=== PATIENT | male | born 1955 | race Caucasian/White ===

== ENCOUNTER 2023-05-08 07:25 | Emergency (ER) | payer OTHER, SELFPAY ==
[2023-05-08 07:40] VITALS: BP 195/104
--- NOTE | 2023-05-08 08:03 | ED.GENMED ---
History of Present Illness
General
Chief Complaint: Flank Pain
Time Seen by Provider: 05/08/23 07:56
Travel History
Have you had any contact with someone who has COVID-19?: No
Do you have any symptoms of coronavirus? Fever > 100 degrees, chills, cough, shortness of breath, sore throat, loss of taste or smell, muscle aches, or headache?: No
History of Present Illness
History of Present Illness:
HPI: At 5 AM, the patient had abrupt onset right sided abdominal and right flank pain. He has never had kidney stone before. This is associated with waves of nausea/dry heaves but he never vomited. While he had the nausea he had some 'tingling in
my head'. He denies any other symptoms.
EXAM:
GENERAL: Well appearing but in mild to moderate distress
HEENT: Moist oral mucosa
CARDIOVASCULAR: No murmurs, normal heart rate and rhythm, No chest wall tenderness
PULMONARY: No respiratory distress, breath sounds are clear and equal
ABDOMEN: Soft with no peritoneal signs, no tenderness minimal right CVA tenderness
NEUROLOGIC: Excellent strength all extremities, no coordination deficits
PSYCHIATRIC: Appropriate mental status, normal insight and judgement
EXTREMITIES: Nontender, no edema, moves all extremities equally
SKIN: No rash, no lesions
TIME OF INITIAL ENCOUNTER: 8:15 AM
NUMBER AND COMPLEXITY OF PROBLEMS ADDRESSED AT THE ENCOUNTER
� Chronic conditions affecting care: CAD, hyperlipidemia, CAD
� Acute Exacerbation and/or Progression of Chronic Illness: This is an acute problem
� Differential Diagnosis includes: Ureteral stone/colic, UTI/pyelonephritis, musculoskeletal abdominal/back pain
AMOUNT AND/OR COMPLEXITY OF DATA TO BE REVIEWED AND ANALYZED
� I performed an independent evaluation of and my interpretation is:
EKG:
CT: I personally viewed CT imaging of the abdomen pelvis, small stone noted at the right UVJ
X-rays:
Laboratory Studies: White count and hemoglobin are normal, renal function is normal, blood noted on urinalysis with no sign of infection
Other:
� Review of other/old records: CBCs over the last several years have been unremarkable, renal function over the last several years have been normal
� Clinical information was obtained by an independent historian: Spoke to
� Prescriptions/Medications Considered but not given:
� Further testing considered but not performed:
RISK OF COMPLICATIONS AND/OR MORBIDITY OR MORTALITY OF PATIENT MANAGEMENT
� Social determinants of health affecting care: This is an acute problem
� Discussion with other providers:
� Escalation of care including admission/observation vs risk of discharge considered: The patient has abrupt onset right-sided pain. The patient was given Toradol initially as well as Zofran and fluids. CT shows small ureteral
stone at the UVJ. On reassessment at 10:00 AM, the patient feels markedly improved after Toradol was given.
Past History
Past History
ED Past Medical History: None, Arrthythmia (s/p ablation), Hypercholesterolemia and Other (Rib Fractures, PNA)
ED Past Surgical History: Cardiac (Ablation, Stent X 1)
Social History
Tobacco: Non-smoker
Alcohol: Daily (Wine One glasses)
Personal:
Living: with family
Employment: Employed
Family History
Family History: CAD (father)
Phy Exam
Physical Exam
Physical Exam:
See HPI
Course
Orders/Labs/Results
Orders:
Orders
05/08/23 08:09
Ketorolac [Toradol] 15 mg .ROUTE .STK-MED ONE
05/08/23 08:14
Ketorolac [Toradol] 15 mg IV NOW STA
05/08/23 08:16
CT Abd/pel Without Iv Or Oral Urgent
Comment:
Reason For Exam: abrupt onset R flank pain
0.9% Sodium Chloride 1000 ml [Nss] 1,000 ml IV BOLUS
Ondansetron Injectable [Zofran] 4 mg IV NOW STA
05/08/23 08:18
CMP [Comprehensive Metabolic Panel] Urgent
Complete Blood Count/With Diff Urgent
Urinalysis Reflex To Culture Urgent
Date Specimen was Collected: 05/08/23
Time Specimen was Collected: 08:15
Urine Microscopic Reflex Cult Urgent
Abnormal Lab Results
05/08/23
08:18
MCV 94.7 H fL
(80.0-94.0)
MCH 32.5 H pg
(27.0-31.0)
Plt Count 77 L 10^3/uL
(130-400)
MPV 11.7 H fL
(7.4-10.4)
Absolute Monos (auto) 0.8 H 10^3/uL
(0.1-0.6)
Monocytes % 10.3 H %
(1.7-9.3)
BUN 21 H mg/dl
(9-20)
Glucose 119 H mg/dl
(70-99)
Ur Occult Blood Reflex 1+ A
(Negative)
Leukocyte Esterase Rfl Trace A
(Negative)
Urine RBC 3-6 A /HPF
(0-2)
Urine Bacteria (Reflex) Few A
(Negative)
05/08/23 08:18
05/08/23 08:18
Vital Signs
Initial and Last Documented VS:
Initial Vital Signs
Temp Pulse Resp BP Pulse Ox
97.7 F 66 20 195/104 99
05/08/23 07:40 05/08/23 07:40 05/08/23 07:40 05/08/23 07:40 05/08/23 07:40
Last Documented Vital Signs
Temp Pulse Resp BP Pulse Ox
97.7 F 63 16 144/85 99
05/08/23 07:40 05/08/23 09:56 05/08/23 09:56 05/08/23 09:56 05/08/23 07:40
*Critical Care Note
Total Time (30-74mins, 75-104mins- exclusive of procedures): Not Applicable
ED Attending Note
-
Portions of this chart may have been created with voice recognition software.� Occasional wrong word or��sound alike� substitutions may have occurred due to the inherent limitations of voice recognition software.
Discharge Plan
Departure
Prescriptions:
No Action
atorvastatin 40 MG tablet
40 mg PO QPM
aspirin 81 MG tablet,delayed release (DR/EC)
81 mg PO DAILY 0RF
Zinc
1 tab PO DAILY
acetaminophen [Acetaminophen Extra Strength] 500 mg tablet
1,000 mg PO Q6H PRN (Reason: Pain) Qty: 14 0RF
multivitamin Tablet
1 tab PO DAILY
trazodone 50 mg Tablet
25 mg PO PRN PRN (Reason: anxiety/stress)
prednisone 5 mg Tablet
5 mg PO DAILY
Referrals:
Jorgito Rasheed DO [Family Provider] -
Interventions
Interventions:
*Risk Screen - Suicide Last Done: 05/08/23 08:07
*Neglect/Abuse Screening Last Done: 05/08/23 08:07
ED- Fall Risk Assessment Last Done: 05/08/23 08:15
*ED COVID-19 Vaccine History Last Done: 05/08/23 07:40
PR-Fcvvtp-Gzrvnshzqi Assessment Last Done: 05/08/23 08:07
ED-Male Genitourinary Assessment Last Done: 05/08/23 08:07
[2023-05-08] MEDS: TORADOL 15 MG IV (08:14)
[2023-05-08] MEDS: NSS 1000 IV (08:22)
[2023-05-08] MEDS: ZOFRAN 4 MG IV (08:22)
[2023-05-08 08:35] LABS: Urine Albumin Negative (Neg - Trace); Urine Bilirubin Negative (Negative); Urine Character Clear (Clear); Urine Color Yellow; Urine Glucose Negative (Negative); Urine Ketone Negative (Negative); Urine Leukocyte Trace (Negative); Urine Nitrite Negative (Negative); Urine Occult Blood 1+ (Negative); Urine Specific Gravity 1.025 (<1.030); Urine Urobilinogen Negative (Neg - 1+)
[2023-05-08 08:37] VITALS: BMI 28.5
[2023-05-08 08:43] LABS: % Basophils 0.7 % (0-2); % Eosinophils 2.1 % (0-6); % Immature Granulocytes 0.4 % (0-0.5); % Lymphocytes 21.9 % (20.5-51.1); % Monocytes 10.3 % (1.7-9.3); % Neutrophils 64.6 % (42.2-75.2); Absolute Basophils 0.1 10^3/uL (0-0.2); Absolute Eosinophils 0.2 10^3/uL (0-0.7); Absolute Lymphocytes 1.7 10^3/uL (1.2-3.4); Absolute Monocytes 0.8 10^3/uL (0.1-0.6); Absolute Neutrophils 4.9 10^3/uL (1.4-6.5); Hematocrit 44.6 % (39.0-52.0); Hemoglobin 15.3 g/dL (13.0-18.0); Mean Corp Hgb Conc. 34.3 g/dL (33.0-37.0); Mean Corpuscular Hgb 32.5 pg (27.0-31.0); Mean Corpuscular Volume 94.7 fL (80.0-94.0); Mean Platelet Volume 11.7 fL (7.4-10.4); Nucleated Red Blood Cells % 0 % (-); Platelet Count 77 10^3/uL (130-400); Red Blood Cell Count 4.71 10^6/uL (4.70-6.10); Red Cell Dist. Width 12.1 % (11.5-14.5); White Blood Cell Count 7.6 10^3/uL (4.8-10.8)
[2023-05-08 08:45] LABS: ALT (SGPT) 24 U/L (0-50); AST (SGOT) 29 U/L (17-59); Albumin 4.4 g/dl (3.5-5.0); Alkaline Phosphatase 74 U/L (38-126); Blood Urea Nitrogen 21 mg/dl (9-20); Calcium 9.9 mg/dl (8.4-10.2); Carbon Dioxide 27 mmol/L (22-30); Chloride 105 mmol/L (98-107); Estimated Creatinine Clearance 79 ml/min; Glucose 119 mg/dl (70-99); Potassium 3.8 mmol/L (3.5-5.1); Sodium 141 mmol/L (135-145); Total Bilirubin 0.6 mg/dl (0.2-1.3); Total Protein 6.8 g/dl (6.3-8.2); eGFR > 60.00
[2023-05-08 09:05] VITALS: BP 159/90
[2023-05-08 09:22] LABS: Urine Mucus Moderate
[2023-05-08 09:26] LABS: Urine Amorphous Seen; Urine Squamous Cell 0-2 /LPF (Few); Urine Uric Acid Crystals Seen; Urine White Cell 0-2 /HPF (0-5)
[2023-05-08 09:27] LABS: Urine Bacteria Few (Negative)
[2023-05-08 09:56] VITALS: BP 144/85
== END 2023-05-08 10:27 | disposition home or self-care (01) ==
LOC: EMR 07:25
PROVIDERS: EMERGENCY PHYSICIAN Emergency Medicine; FAMILY PHYSICIAN Student in an Organized Health Care Education/Training Program
DX: N20.1 Calculus of ureter (principal); E78.00 Pure hypercholesterolemia, unspecified; I25.10 Atherosclerotic heart disease of native coronary artery without angina pectoris
CPT/HCPCS: 99284; 96374; 96375; 96361; 74176; 80053; 81003; 81015; 85025